=== PATIENT | female | born 1940 | race Caucasian/White ===

== ENCOUNTER → 2020-11-14 | Outpatient (CLI) | payer MEDICARE ==
[~2020-11-14] MED LIST: BARIUM for suspension 96% w/w (Vanilla Silq Medium Density) PO ONE; BARIUM for suspension 98% w/w (Vanilla Silq High Density) PO ONE
--- NOTE | 2020-11-14 11:11 | Diagnostic Imaging Report ---
Indication: Epigastric pain as well as food getting stuck in the lower esophageal region. Patient ingested effervescent crystals as well as thin and thick barium and imaging over the esophagus was performed in multiple obliquities. Total of 52 seconds of fluoroscopic time was utilized. Preliminary radiograph of the chest is unremarkable. The esophagus has a fairly smooth contour. There is occasional tertiary contractions present. No esophageal mass or esophageal stricture is identified. No hiatal hernia or gastroesophageal reflux was demonstrated. IMPRESSION: Occasional tertiary contractions. Study is otherwise unremarkable. No esophageal mass or stricture was detected. Dictated by: Dictated on workstation # [id number]
== END ==
LOC: RAD 09:45
PROVIDERS: ATTEND Internal Medicine Gastroenterology
DX: K22.9 Disease of esophagus, unspecified (principal)
CPT/HCPCS: 74220